=== PATIENT | male | born 1970 | race Caucasian/White ===

== ENCOUNTER 2022-06-05 14:30 | Emergency (ER) | payer OTHER ==
[2022-06-05 14:54] VITALS: BP 126/84; PULSE 100; RESP 18; TEMP 98; BMI 37.6
[2022-06-05] MEDS ORDERED: KETOROLAC TROMETHAMINE 30 MG/1 ML VIAL IM ONE (15:14)
[2022-06-05] MEDS ORDERED: BUPIVACAINE HCL/PF 0.5% (5 MG/ML) 30 ML VIAL IJ ONE (15:14)
[2022-06-05] MEDS ORDERED: KETOROLAC TROMETHAMINE 30 MG/1 ML VIAL ONE (15:18)
[2022-06-05] MEDS ORDERED: BUPIVACAINE HCL/PF 0.5% (5MG/ML) 10 ML VIAL ONE (15:22)
== END 2022-06-05 15:32 | disposition home or self-care (01) ==
LOC: JERFT 14:30
PROC: 3E0233Z Introduction of Anti-inflammatory into Muscle, Percutaneous Approach (ICD-10-PCS; principal; 2022-06-05)
DX: K08.89 Other specified disorders of teeth and supporting structures (principal)
CPT/HCPCS: 99283-25

== ENCOUNTER 2024-05-11 21:09 | Emergency (ER) | payer OTHER ==
[2024-05-11 21:35] VITALS: BMI 38.3
[2024-05-11] MEDS ORDERED: KETOROLAC TROMETHAMINE 15 MG/ML VIAL ONE (22:00)
[2024-05-11] MEDS: KETOROLAC TROMETHAMINE 15 MG/ML VIAL IVPUSH ONE (22:12)
[2024-05-11] MEDS: SODIUM CHLORIDE 0.9% 500 ML INFUS.BAG IV ONE (22:12)
[2024-05-11 22:24] LABS: BASO % 0.4 % (0-2.0); EOS % 2.6 % (0-4.5); HEMATOCRIT 48.2 % (35.4-49); HEMOGLOBIN 15.9 GM/dL (11.7-16.9); LYMPH % 22.1 % (8-40); MCH 29.9 pg (25.7-33.7); MCHC 32.9 g/dl (32.0-35.9); MEAN CELL VOLUME 90.8 fl (80-96); MEAN PLT VOLUME 8.2 fl (7.5-11.1); MONO % 5.3 % (3.8-10.2); NEUT % 69.6 % (42.8-82.8); PLATELET COUNT 246 10^3/uL (134-434); RBC 5.31 M/mm3 (4.00-5.60); RDW 14.4 % (11.9-15.9); WHITE BLOOD COUNT 10.7 K/mm3 (4.0-10.0)
[2024-05-11 22:32] LABS: INR 1.12 (0.83-1.09); PROTHROMBIN TIME (PATIENT) 12.6 SEC (9.7-13.0)
[2024-05-11 22:35] LABS: ACTIVATED PTT 34.8 SECONDS (25.2-36.5)
[2024-05-11 22:51] LABS: POTASSIUM 5.1 mmol/L (3.5-5.1)
[2024-05-11 22:54] LABS: ALBUMIN 3.6 g/dl (3.4-5.0); BLOOD UREA NITROGEN 19.2 mg/dL (7-18); CALCIUM 8.8 mg/dL (8.5-10.1)
[2024-05-11 22:56] LABS: CREATININE 1.1 mg/dL (0.55-1.3)
[2024-05-11 22:59] LABS: BILIRUBIN,TOTAL 0.7 mg/dL (0.2-1); TOT PROT 6.8 g/dl (6.4-8.2)
[2024-05-12] MEDS ORDERED: LIDOCAINE 5% TOPICAL PATCH ONE (00:45)
[2024-05-12] MEDS ORDERED: ACETAMINOPHEN INJECTION 100 ML ONE (00:45)
[2024-05-12] MEDS: LIDOCAINE 5% TOPICAL PATCH TP ONE (00:58)
[2024-05-12] MEDS: ACETAMINOPHEN 1000 MG/100 ML BAG IVPB ONE (00:59)
[2024-05-12] MEDS ORDERED: HYDROmorphone HCl 2 MG/ML VIAL ONE ×5 (01:56→19:01)
[2024-05-12] MEDS: HYDROmorphone HCl 2 MG/ML VIAL IVPUSH ONE ×6 (02:02→19:08)
[2024-05-12 03:21] LABS: EPI CELLS 9 /uL (0-25.1); HYALINE CASTS 10 /uL (0-3.1); PH,URINE 8.5 (5.0-8.0); URINE APPEARANCE TURBID; URINE BILIRUBIN NEGATIVE (NEGATIVE); URINE GLUCOSE (UA) NEGATIVE (NEGATIVE); URINE KETONE TRACE (NEGATIVE); URINE LEUK ESTERASE 1+ (NEGATIVE); URINE NITRITE POSITIVE (NEGATIVE); URINE PROTEIN 1+ (NEGATIVE); URINE WBC 193 /uL (0-25.8)
[2024-05-12] MEDS ORDERED: CEFTRIAXONE 1 GM/50 ML BAG ONE (04:26)
[2024-05-12] MEDS: CEFTRIAXONE 1,000 MG in DEXTROSE 5%-WATER - 50 ML IVPB ONE (04:32)
[2024-05-12 06:30] LABS: URINE COLOR 48.4
[2024-05-12 06:32] LABS: YEAST NOT SEEN (NEGATIVE)
[2024-05-12 06:34] LABS: URINE CRYSTALS PRESENT /hpf; URINE RBC 48.4 /uL (0-23.9)
[2024-05-12 06:35] LABS: URINE BACTERIA 252.6 /uL (0-1359)
[2024-05-12 12:20] VITALS: TEMP 97.5
[2024-05-12 18:56] VITALS: BP 135/82; PULSE 58; RESP 20
[2024-05-12] MEDS ORDERED: LIDOCAINE PATCH REMOVAL MC SCH (22:00)
== END 2024-05-12 19:00 | disposition short-term general hospital (02) ==
LOC: JER 21:09
PROC: 3E0333Z Introduction of Anti-inflammatory into Peripheral Vein, Percutaneous Approach (ICD-10-PCS; 2024-05-11)
PROC: 3E03329 Introduction of Other Anti-infective into Peripheral Vein, Percutaneous Approach (ICD-10-PCS; principal; 2024-05-12)
PROC: 3E033NZ Introduction of Analgesics, Hypnotics, Sedatives into Peripheral Vein, Percutaneous Approach (ICD-10-PCS; 2024-05-12)
PROC: 3E033NZ Introduction of Analgesics, Hypnotics, Sedatives into Peripheral Vein, Percutaneous Approach (ICD-10-PCS; 2024-05-12)
PROC: 3E033NZ Introduction of Analgesics, Hypnotics, Sedatives into Peripheral Vein, Percutaneous Approach (ICD-10-PCS; 2024-05-12)
PROC: 3E033NZ Introduction of Analgesics, Hypnotics, Sedatives into Peripheral Vein, Percutaneous Approach (ICD-10-PCS; 2024-05-12)
PROC: 3E033NZ Introduction of Analgesics, Hypnotics, Sedatives into Peripheral Vein, Percutaneous Approach (ICD-10-PCS; 2024-05-12)
PROC: 3E033NZ Introduction of Analgesics, Hypnotics, Sedatives into Peripheral Vein, Percutaneous Approach (ICD-10-PCS; 2024-05-12)
DX: M54.9 Dorsalgia, unspecified (principal); R10.9 Unspecified abdominal pain; R30.0 Dysuria; Z20.822 Contact with and (suspected) exposure to COVID-19
CPT/HCPCS: 0241U-QW; 36415; 74176-TC; 75635-TC; 80053; 81003; 85025; 85610; 85730; 86850; 86900; 86901; 87086; 87186; 93005; 93010; 99285-25; J0131

== ENCOUNTER 2024-07-14 21:50 | Observation (INO) | payer OTHER ==
[2024-07-14 21:58] VITALS: BMI 41.8
[2024-07-14] MEDS: ACETAMINOPHEN 1000 MG/100 ML BAG IVPB ONE (22:20)
[2024-07-14 22:52] LABS: BASO % 0.8 % (0-2.0); EOS % 5.5 % (0-4.5); HEMATOCRIT 46.4 % (35.4-49); HEMOGLOBIN 15.4 GM/dL (11.7-16.9); LYMPH % 25.4 % (8-40); MCH 30.1 pg (25.7-33.7); MCHC 33.2 g/dl (32.0-35.9); MEAN CELL VOLUME 90.5 fl (80-96); MONO % 5.8 % (3.8-10.2); NEUT % 62.5 % (42.8-82.8); PLATELET COUNT 235 10^3/uL (134-434); RBC 5.13 M/mm3 (4.00-5.60); RDW 14.8 % (11.9-15.9); WHITE BLOOD COUNT 10.1 K/mm3 (4.0-10.0)
[2024-07-15] MEDS ORDERED: HYDROmorphone HCL 2 MG TABLET PO ONE (00:19)
[2024-07-15] MEDS ORDERED: HYDROmorphone HCL CARPU-JECT 2 MG/1 ML DISP.SYRIN ONE ×3 (00:38→13:54)
[2024-07-15] MEDS: HYDROmorphone HCL CARPU-JECT 2 MG/1 ML DISP.SYRIN IVPB ONE (00:58)
[2024-07-15] MEDS: HYDROmorphone HCl 2 MG/ML VIAL IVPB ONE (00:58)
[2024-07-15 01:06] LABS: POTASSIUM 3.9 mmol/L (3.5-5.1)
[2024-07-15 01:08] LABS: CALCIUM 9.1 mg/dL (8.5-10.1)
[2024-07-15 01:09] LABS: BLOOD UREA NITROGEN 16.6 mg/dL (7-18); MAGNESIUM 2.1 mg/dL (1.8-2.4)
[2024-07-15 01:12] LABS: CREATININE 1.1 mg/dL (0.55-1.3)
[2024-07-15 01:13] LABS: TOT PROT 7.1 g/dl (6.4-8.2)
[2024-07-15 01:19] LABS: BILIRUBIN,TOTAL 0.6 mg/dL (0.2-1)
[2024-07-15 01:25] LABS: INR 1.09 (0.83-1.09); PROTHROMBIN TIME (PATIENT) 12.5 SEC (9.7-13.0)
[2024-07-15 05:27] LABS: EOS % 5.6 % (0-4.5); HEMATOCRIT 44.3 % (35.4-49); HEMOGLOBIN 14.6 GM/dL (11.7-16.9); LYMPH % 30.1 % (8-40); MCH 29.9 pg (25.7-33.7); MCHC 33.1 g/dl (32.0-35.9); MEAN CELL VOLUME 90.5 fl (80-96); MEAN PLT VOLUME 8.1 fl (7.5-11.1); MONO % 4.9 % (3.8-10.2); NEUT % 58.4 % (42.8-82.8); PLATELET COUNT 213 10^3/uL (134-434); RBC 4.89 M/mm3 (4.00-5.60); RDW 14.9 % (11.9-15.9); WHITE BLOOD COUNT 8.4 K/mm3 (4.0-10.0)
[2024-07-15] MEDS: ACETAMINOPHEN 500 MG TABLET (FP) PO SCH (05:29)
[2024-07-15 05:36] LABS: CHLORIDE 107 mmol/L (98-107); POTASSIUM 4.2 mmol/L (3.5-5.1); SODIUM 141 mmol/L (136-145)
[2024-07-15 05:37] LABS: CALCIUM 8.8 mg/dL (8.5-10.1)
[2024-07-15 05:38] LABS: ANION GAP 7 mmol/L (4-13); CO2 27 mmol/L (21-32); GLUCOSE,RANDOM 113 mg/dL (74-106)
[2024-07-15] MEDS ORDERED: BENZOCAINE/MENTHOL (CHLORASEPTIC ) LOZENGE MM PRN (05:40)
[2024-07-15] MEDS: KETOROLAC TROMETHAMINE 30 MG/1 ML VIAL IVPUSH ONE (05:44)
[2024-07-15] MEDS: HYDROmorphone HCl 2 MG/ML VIAL IVPB PRN (05:44)
[2024-07-15] MEDS: ONDANSETRON 4 MG/2 ML VIAL IVPUSH PRN (06:53)
[2024-07-15] MEDS: PANTOPRAZOLE SODIUM 40 MG VIAL IVPUSH ONE (06:53)
[2024-07-15] MEDS ORDERED: guaiFENesin/CODEINE 10 ML UNIT-DOSE CUPS ONE (07:31)
[2024-07-15] MEDS: guaiFENesin/D-METHORPHAN HB 10 ML UNIT-DOSE CUPS PO PRN (07:59)
[2024-07-15 09:32] VITALS: TEMP 97.5
[2024-07-15] MEDS ORDERED: KETOROLAC TROMETHAMINE 15 MG/ML VIAL ONE (11:53)
[2024-07-15] MEDS: KETOROLAC TROMETHAMINE 15 MG/ML VIAL IVPUSH SCH (12:29)
[2024-07-15 15:24] VITALS: BP 146/99; PULSE 86; RESP 20
[2024-07-15] MEDS ORDERED: DOCUSATE SODIUM 100 MG CAPSULE (FP) PO SCH (22:00)
[2024-07-16] MEDS ORDERED: KETOROLAC TROMETHAMINE 15 MG/ML VIAL IVPUSH PRN (00:01)
[2024-07-16] MEDS ORDERED: ACETAMINOPHEN 325 MG TABLET (FP) PO PRN (06:00)
[2024-07-16] MEDS ORDERED: PANTOPRAZOLE 40 MG TABLET PO SCH (10:00)
== END 2024-07-15 15:24 | disposition home or self-care (01) ==
LOC: JER 21:50 → JERBED 07-15 04:59
PROVIDERS: ADMIT Internal Medicine; ATTEND Internal Medicine
PROC: 3E033NZ Introduction of Analgesics, Hypnotics, Sedatives into Peripheral Vein, Percutaneous Approach (ICD-10-PCS; principal; 2024-07-15)
PROC: 3E0333Z Introduction of Anti-inflammatory into Peripheral Vein, Percutaneous Approach (ICD-10-PCS; 2024-07-15)
PROC: 3E033GC Introduction of Other Therapeutic Substance into Peripheral Vein, Percutaneous Approach (ICD-10-PCS; 2024-07-15)
DX: R07.89 Other chest pain (principal); I74.09 Other arterial embolism and thrombosis of abdominal aorta; I50.32 Chronic diastolic (congestive) heart failure; F14.90 Cocaine use, unspecified, uncomplicated; N20.0 Calculus of kidney; Z98.84 Bariatric surgery status; F32.A Depression, unspecified; G89.29 Other chronic pain; M54.50 Low back pain, unspecified; F17.210 Nicotine dependence, cigarettes, uncomplicated
CPT/HCPCS: 0241U-QW; 36415; 71045-TC-FY; 71275-TC; 74174-TC; 80048; 80053; 83735; 84484; 85025; 85610; 86140; 86850; 86900; 86901; 87635; 93005; 93010; 96374; 96375; 96376; 99285-25; G0378; J0131; Q9967